=== PATIENT | male | born 1940 | race American Indian/Alaskan Native ===

== ENCOUNTER 2017-10-01 14:17 | Emergency (ER) | payer OTHER, MEDICARE ==
[2017-10-01] MEDS ORDERED: ZOFRAN ONE ×2 (15:14→15:15)
[2017-10-01] MEDS ORDERED: DILAUDID ONE (15:14)
[2017-10-01 15:16] VITALS: BP 126/78
[2017-10-01] MEDS ORDERED: TYLENOL PO ONE (18:16)
--- NOTE | 2017-10-01 18:58 | Cat Scan Report ---
FINAL REPORT PROCEDURE: CT HEAD/BRAIN WO CON TECHNIQUE: Computerized tomography of the head was performed without contrast material. HISTORY: headache COMPARISON: No prior studies are available for comparison. FINDINGS: There is no CT evidence of intracranial mass, hemorrhage, acute territorial infarction, or hydrocephalus. The intracranial arteries are symmetric in density. There is right maxillary sinus mucosal thickening. Mastoids are aerated. Calvarium is intact. IMPRESSION: No CT evidence of acute intracranial abnormality
--- NOTE | 2017-10-01 19:05 | XRay Report ---
FINAL REPORT PROCEDURE: XR SPINE CERVICAL 2-3V TECHNIQUE: Cervical spine, four views HISTORY: lower neck pain COMPARISON: No prior studies are available for comparison. FINDINGS: The vertebral body heights and alignment are maintained. There is straightening of the usual cervical lordosis. There are degenerative disc changes, particularly from C3-4 through C7-T1, with disc space narrowing and osteophyte formation. The prevertebral soft tissues are within normal limits in thickness. Odontoid process appears intact. IMPRESSION: Multilevel degenerative disc changes
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
--- NOTE | 2017-10-01 21:37 | XRay Report ---
FINAL REPORT EXAM: XR SPINE THORACIC 3V HISTORY: mid-thoracic back pain TECHNIQUE: Three views thoracic spine were performed Comparison: None FINDINGS: There is mild wedging of upper lumbar vertebral bodies. There are bridging osteophytes/syndesmophytes of the lower thoracic vertebral bodies. The upper thoracic vertebral bodies are obscured by motion degradation and technique. AP image shows pedicles to be intact. Tortuous aorta. Aortic knob poorly delineated which may be partly related to technique. IMPRESSION: Degenerative wedging upper lumbar vertebral bodies. Bridging osteophytes/syndesmophytes of the mid and lower thoracic vertebral bodies. Upper thoracic vertebral bodies are obscured. The AP projection shows poor delineation of the aortic arch which may be technique related. If there is clinical concern for aortic pathology, recommend CT aortic protocol.
== END 2017-10-01 20:18 | disposition home or self-care (01) ==
LOC: ED 14:17
DX: M54.2 Cervicalgia (principal); M54.9 Dorsalgia, unspecified; R51 Headache
CPT/HCPCS: 70450; 72040; 72072; 99284; J1170; J2405